=== PATIENT | male | born 1995 | race Caucasian/White ===

== ENCOUNTER 2017-01-26 17:07 | Emergency (ER) | payer OTHER | END 2017-01-26 18:30 | disposition home or self-care (01) | LOC: FER 17:07 | DX: S61.212A Laceration without foreign body of right middle finger without damage to nail, initial encounter (principal); Z23 Encounter for immunization; W45.8XXA Other foreign body or object entering through skin, initial encounter | CPT/HCPCS: 90471; 90715 ==